=== PATIENT | female | born 1965 | race Caucasian/White ===

== ENCOUNTER → 2017-05-23 | Day surgery (SDC) | payer BC ==
[~2017-05-23] MED LIST: Bacitracin Zinc Ointment 30 gm TUBE ONE; Bupivacaine 0.25% HCL 30 ML VIAL ONE; CEFAZOLIN/Water 2 GM/20 ML SYRINGE ONE; Fentanyl 100 MCG/2 ML VIAL ONE; Ketorolac Tromethamine 30 MG/ML VIAL ONE; Lidocaine 1% w/Epinephrine 1:200K 30 ML VIAL ONE; Lidocaine 2% PF 10 ML AMP (For Epidural Use) ONE; Midazolam HCl 2 mg/2 ml Vial ONE; Ondansetron HCl/PF 4 MG/2 ML Vial ONE; Propofol 200 MG/20 ML VIAL ONE
--- NOTE | 2017-05-23 16:02 | HP ---
CHIEF COMPLAINT: Anterior scalp mass. HISTORY OF PRESENT ILLNESS: This patient is a 51-year-old white female. She is known to myself fro m a right breast lumpectomy for DCIS. This was performed in 10/2016. She was recognized to have a visible and palpable mass at the anterior aspect of her scalp in the midline, approximately at the hairline. She presented to my office today for excision of this as I believe this was a soft tissue mass of the scalp. The procedure was performed uneventfully and without complication; however, it was recognized that this was a mass associated with the bone of the skull rather than a soft tissue mass of the scalp. Although I was able to partially elevate this off the underlying cranium, I coul d not safely complete the procedure in my office with inadequate instrumentation. I discussed options with the patient including closing without removing the lesion or coming to the operating room for completion of the excision. She opted to complete the excision here in the oper ating room. PAST MEDICAL HISTORY: 1. History of right breast ductal carcinoma in situ. 2. Hypertension. 3. Seasonal allergies. PAST SURGICAL HISTORY: 1. Tonsillectomy. 2. . 3. Thyroid resection. 4. Right breast lumpectomy. CURRENT MEDICATIONS: Benazepril and atenolol. ALLERGIES: No known drug allergies. PERSONAL AND SOCIAL HISTORY: She is . Her is present at bedside currently. She has children. She denies tobacco or significant alcohol use. REVIEW OF SYSTEMS: Otherwise, unremarkable. FAMILY HISTORY: Noncontributory. PHYSICAL EXAMINATION: VITAL SIGNS: She is afebrile, pulse is 83, blood pressure 111/68. GENERAL: She is a well-developed, well-nourished, pleasant white female resting in no acute distres s. She is alert and oriented x3. HEENT: Unremarkable. She has a closed incision overlying the lesion at her hairline. The incision s about 1.5 cm transversely at the hairline. LUNGS: Clear to auscultation. CARDIAC: Regular rate and rhythm. ABDOMEN: Benign. EXTREMITIES: Unremarkable. ASSESSMENT: Patient with a bony lesion of the cranium underlying the anterior scalp at the hairline . This has been partially elevated. PLAN: Completion of resection in the operating room. I discussed the operation in detail with the patient as well as potential risks. She understands and agrees to proceed with surgery.
--- NOTE | 2017-05-24 19:48 | OP ---
DATE OF PROCEDURE: 05/23/2017 PREOPERATIVE DIAGNOSIS: Bony mass of the frontal bone of the cranium. POSTOPERATIVE DIAGNOSIS: Bony mass of the frontal bone of the cranium. OPERATION PERFORMED: Excision of 1.5 cm bony mass of anterior aspect of the frontal bone. SURGEON: Jose Juan Gamez M.D. ANESTHESIA: General with laryngeal mask airway. INDICATIONS: The patient is a 51-year-old white female. She had presented earlier in the day for e xcision of a presumed soft tissue mass near the hairline in the center of her upper forehead. It wa s recognized at the time of attempted excision of this was in fact a mass protruding from the fronta l bone of the cranium. She already had an incision in this area, I recommended proceeding to the op erating room for removal of this presumed benign bony growth. OPERATIVE PROCEDURE IN DETAIL: Informed consent was obtained. The patient was taken to the operati ng room where general anesthesia was obtained with the patient in supine position. The area was pre pped with Betadine and draped in sterile fashion. Local anesthetic was infiltrated using 0.25% Jacob mari with epinephrine. The prior incision was reopened. No additional incision was required. Diss ection was carried down onto the easily visible, smooth edged bony mass. I would be initiated disse ction of this off the underlying cranium. This was thereafter continued using a combination of fine tip bone rina as well as a fine periosteal elevator with the mallet. The largest portion of this came off immediately, but there was still some underlying irregularity. I contoured this additiona lly with the small chisel and mallet. When completed, all of the bony mass had been removed. There was nothing that appeared malignant. There was minimal oozing from the bone. The wound was thorou ghly irrigated and all irrigant was aspirated. The wound was closed in layers with 3-0 Vicryl and 4 -0 Prolene. Antibiotic ointment was placed externally. I then placed a Telfa gauze along with 4 x 4s and a compression dressing. There were no complications. Patient tolerated the procedure well a nd was taken to recovery in stable condition.
== END ==
LOC: SDC 15:08
PROVIDERS: ATTEND Specialist
PROC: 0JB00ZZ Excision of Scalp Subcutaneous Tissue and Fascia, Open Approach (ICD-10-PCS; principal; 2017-05-23)
DX: R22.0 Localized swelling, mass and lump, head (principal); I10 Essential (primary) hypertension; J30.2 Other seasonal allergic rhinitis; E89.0 Postprocedural hypothyroidism; Z79.899 Other long term (current) drug therapy; Z90.89 Acquired absence of other organs; Z98.891 History of uterine scar from previous surgery; Z98.890 Other specified postprocedural states; Z85.3 Personal history of malignant neoplasm of breast
CPT/HCPCS: 88305; 88311; J0131; J1885; J2001; J2250; J2405; J2704; J3010; S0020

== ENCOUNTER 2017-10-24 10:16 | Outpatient (CLI) | payer OTHER | END 2017-10-24 10:17 | disposition home or self-care (01) | LOC: BICMAMMO 10:16 | PROVIDERS: ATTEND Specialist | DX: D05.11 Intraductal carcinoma in situ of right breast (principal) | CPT/HCPCS: 77066; G0279 ==

== ENCOUNTER 2017-12-26 09:40 | Outpatient (CLI) | payer OTHER | END 2017-12-26 09:41 | disposition home or self-care (01) | LOC: BICCT 09:40 | PROVIDERS: ATTEND Otolaryngology Plastic Surgery within the Head & Neck | DX: H90.A21 Sensorineural hearing loss, unilateral, right ear, with restricted hearing on the contralateral side (principal); H90.A32 Mixed conductive and sensorineural hearing loss, unilateral, left ear with restricted hearing on the contralateral side; H93.13 Tinnitus, bilateral | CPT/HCPCS: 70480 ==

== ENCOUNTER 2018-01-16 10:42 | Outpatient (CLI) | payer OTHER ==
--- NOTE | 2018-01-16 15:24 | NM ---
WHOLE BODY BONE SCAN: DATE: 01/16/18. HISTORY: Osteitis deformans of unspecified bone. Abnormal attenuation of bilateral temporal bones (history of tinnitus and bilateral conductive hearing loss). RADIOPHARMACEUTICAL: 31 mCi Technetium 99m labeled MDP, IV. VIEWS OBTAINED: Anterior posterior whole body. FINDINGS: There is very mild uptake of radiotracer within the shoulders bilaterally, likely in a degenerative p attern. There is otherwise normal uptake of the radiotracer seen throughout the axial and appendicul ar skeleton. There is, however, increased uptake overlying the region of the nasal bone which may be related to sinus disease involving the ethmoidal air cells. Minimal activity is seen in the region of the kidneys and urinary bladder. IMPRESSION: 1. No scintigraphic findings to suggest osseous metastatic disease. 2. No evidence of findings related to Paget's disease (osteitis deformans). There is no abnormal up take seen overlying the region of the temporal bones. POS: [facility]
== END 2018-01-16 10:43 | disposition home or self-care (01) ==
LOC: NM 10:42
PROVIDERS: ATTEND Internal Medicine Endocrinology, Diabetes & Metabolism
DX: M88.9 Osteitis deformans of unspecified bone (principal)
CPT/HCPCS: 78306; A9503

== ENCOUNTER 2018-07-20 15:10 | Outpatient (CLI) | payer OTHER ==
--- NOTE | 2018-07-20 15:54 | ULT ---
ULTRASOUND SOFT TISSUES: HISTORY: Bilateral supraclavicular fullness, right greater than left. The patient has a history of DCIS. COMPARISON: None. TECHNIQUE: Targeted sonographic imaging of the region of fullness is performed. Static images are reviewed. FINDINGS: In the right supraclavicular region, there is an enlarged lymph node measuring approximately 1 cm x 1 .2 cm x 0.8 cm. In the region of concern in the left supraclavicular region, there is a nonenlarged left supraclavicular lymph node measuring 0.6 x 0.7 x 0.5 cm. There appears to be a 2nd more slightl y enlarged lymph node with a preserved fatty hilum measuring 1.5 x 0.9 cm. These lymph nodes are adj acent to the internal jugular vein. IMPRESSION: Bilateral supraclavicular lymphadenopathy. Given patient's history, postcontrast soft tissue neck an d chest CT is recommended. POS: [facility]
== END 2018-07-20 15:11 | disposition home or self-care (01) ==
LOC: SCSULT 15:10
PROVIDERS: ATTEND Internal Medicine Endocrinology, Diabetes & Metabolism
DX: E65 Localized adiposity (principal); R59.0 Localized enlarged lymph nodes
CPT/HCPCS: 76999

== ENCOUNTER 2018-07-24 14:35 | Outpatient (CLI) | payer OTHER ==
--- NOTE | 2018-07-24 17:11 | CT ---
CT CHEST WITH IV CONTRAST: Date: 07/24/18 HISTORY: Concern for supraclavicular lymphadenopathy. FINDINGS: No lymphadenopathy is seen in the supraclavicular regions, axilla, mediastinum, or hilar regions. No focal areas of consolidation, pneumothoraces, pulmonary nodules/masses, pleural or pericardial effusi ons are identified. There are mild degenerative changes in the spine. IMPRESSION: 1. No evidence of supraclavicular or intrathoracic lymphadenopathy. 2. CT scan of the chest should be performed as recommended on the ultrasound report of 07/20/18. POS: [facility]
== END 2018-07-24 14:36 | disposition home or self-care (01) ==
LOC: BICCT 14:35
PROVIDERS: ATTEND Internal Medicine Endocrinology, Diabetes & Metabolism
DX: R22.1 Localized swelling, mass and lump, neck (principal); E89.0 Postprocedural hypothyroidism
CPT/HCPCS: 71260

== ENCOUNTER 2018-08-07 13:42 | Outpatient (CLI) | payer OTHER ==
--- NOTE | 2018-08-07 16:30 | CT ---
CT NECK SOFT TISSUE WITH CONTRAST: CLINICAL HISTORY: Bilateral supraclavicular fullness, right greater than left, with neck edema/swelling and lymphadenop athy. COMPARISON: Reference made to ultrasound from 07/20/2018. FINDINGS: Several scattered borderline-sized lymph nodes throughout each cervical chain, as well as within the supraclavicular aspect of the upper chest, bilaterally, are present, measuring up to approximately 1 cm in size. Findings are nonspecific. The thyroid gland is not visualized. The submandibular glands and the parotid glands are unremarkabl e. No intrinsic mass effect of the aerodigestive tract. The imaged upper lung zones reveal no evide nce of mass. The osseous structures are intact. IMPRESSION: Nonspecific borderline-sized bilateral lymph nodes involving the cervical chains and the supraclavicu lar fossae. Findings could be reactive. The possibility of a neoplastic or a lymphoproliferative pr ocess is not excluded. If there remains clinical concern, findings could be further assessed with PE T CT, to evaluate for increased metabolic activity, as indicated. POS: [facility]
== END 2018-08-07 13:43 | disposition home or self-care (01) ==
LOC: BICCT 13:42
PROVIDERS: ATTEND Otolaryngology Plastic Surgery within the Head & Neck
DX: R22.1 Localized swelling, mass and lump, neck (principal); R59.0 Localized enlarged lymph nodes
CPT/HCPCS: 70491

== ENCOUNTER 2018-10-28 09:54 | Outpatient (CLI) | payer OTHER ==
--- NOTE | 2018-11-02 13:23 | MMO ---
Bilateral MAMMO Bilat Diag DDI+REGINA. CLINICAL HISTORY: Patient is 52 years old and is seen for diagnostic exam. The patient has no family history of breast cancer. The patient has a history of Stereotactic Core Biopsy procedure revealed ductal carcinoma in situ. in the right breast in August,. The patient has a history of right Excisional Biopsy in 2017 - dcis and right Lumpectomy in 2017 - dcis - x2. VIEWS: The views performed were: bilateral craniocaudal with tomosynthesis; bilateral mediolateral oblique with tomosynthesis; and bilateral mediolateral. FILMS COMPARED: The present examination has been compared to prior imaging studies performed at [facility] on 01/31/2006, 02/05/2006, 01/21/2008, 06/12/2010, 06/13/2011, 08/30/2013, 08/31/2014, 08/22/2016, 08/26/2016 and 10/24/2017. MAMMOGRAM FINDINGS: The breasts are heterogeneously dense, which could obscure a lesion on mammography. Finding 1: There is a stable area of architectural distortion with associated post-surgical scar seen in the right breast. Finding 2: There are benign appearing calcifications seen in both breasts. There are no suspicious masses, calcifications or areas of architectural distortion. IMPRESSION: THERE IS NO MAMMOGRAPHIC EVIDENCE OF MALIGNANCY. A ROUTINE FOLLOW-UP MAMMOGRAM IN 1 YEAR IS RECOMMENDED. THE RESULTS OF THIS EXAM WERE SENT TO THE PATIENT. ACR BI-RADS Category 2 - Benign finding MAMMOGRAPHY NOTE: 1. A negative mammogram report should not delay a biopsy if a dominant of clinically suspicious mass is present. 2. Approximately 10% to 15% of breast cancers are not detected by mammography. 3. Adenosis and dense breasts may obscure an underlying neoplasm.
== END 2018-10-28 09:55 | disposition home or self-care (01) ==
LOC: BICMAMMO 09:54
PROVIDERS: ATTEND Specialist
DX: Z08 Encounter for follow-up examination after completed treatment for malignant neoplasm (principal); Z86.000 Personal history of in-situ neoplasm of breast
CPT/HCPCS: 77066; G0279

== ENCOUNTER 2019-11-01 08:26 | Outpatient (CLI) | payer OTHER ==
--- NOTE | 2019-11-01 09:22 | MMO ---
Bilateral MAMMO Bilat Diag DDI+REGINA. CLINICAL HISTORY: Patient is 53 years old and is seen for screening. The patient has no family history of breast cancer. The patient has a history of Stereotactic core biopsy procedure revealed ductal carcinoma in situ. in the right breast in August,. The patient has a history of right Excisional Biopsy in 2017 - dcis and right Lumpectomy in 2017 - dcis - x2. VIEWS: The views performed were: bilateral craniocaudal with tomosynthesis and bilateral mediolateral oblique with tomosynthesis. FILMS COMPARED: The present examination has been compared to prior imaging studies performed at [facility] on 08/26/2016, 10/24/2017 and 10/28/2018. This study has been interpreted with the assistance of computer-aided detection. MAMMOGRAM FINDINGS: The breasts are heterogeneously dense, which could obscure a lesion on mammography. There are amorphous or indistinct calcifications with segmental distribution seen in the posterior upper-outer region of the left breast. In the right breast, there are no suspicious masses, calcifications or areas of architectural distortion. IMPRESSION: CALCIFICATIONS IN THE LEFT BREAST ARE SUSPICIOUS. BIOPSY IS RECOMMENDED. DR. MILNER NOTIFIED AT 9:18 AM. THE RESULTS OF THIS EXAM WERE SENT TO THE PATIENT. ACR BI-RADS Category 4 - Suspicious abnormality - biopsy should be considered MAMMOGRAPHY NOTE: 1. A negative mammogram report should not delay a biopsy if a dominant of clinically suspicious mass is present. 2. Approximately 10% to 15% of breast cancers are not detected by mammography. 3. Adenosis and dense breasts may obscure an underlying neoplasm. Reported by: Alec HARRIS Electonically Signed: [id number]
== END 2019-11-01 08:27 | disposition home or self-care (01) ==
LOC: BICMAMMO 08:26
PROVIDERS: ATTEND Specialist
DX: Z08 Encounter for follow-up examination after completed treatment for malignant neoplasm (principal); R92.1 Mammographic calcification found on diagnostic imaging of breast; Z86.000 Personal history of in-situ neoplasm of breast
CPT/HCPCS: 77063; 77066; 77067; G0279

== ENCOUNTER → 2019-11-05 | Day surgery (SDC) | payer OTHER ==
--- NOTE | 2019-11-05 09:37 | MMO ---
Stereotactic guided biopsy left breast microcalcifications Surgical specimen mammography Diagnostic mammogram left breast post biopsy HISTORY: Abnormal mammogram. Microcalcifications. Prior breast cancer. FINDINGS: After explaining the procedure and answering all questions, the microcalcification cluster deep within the superior lateral aspect the left breast was visualized. Sterile technique, buffered local anesthesia, stereotactic guidance, and a lateral approach were used to carefully advance a 10-g auge vacuum-assisted needle into the cluster of microcalcifications. A total of 12 10-gauge specimens were obtained without difficulty. Surgical specimen mammography shows microcalcifications in many of the tissue samples. Localization c lip was placed in the biopsy bed under stereotactic guidance. Needle was removed and hemostasis obtained using direct pressure. Patient tolerated the procedure well and was eventually dismissed in good condition. Postprocedure diagnostic mammogram shows heterogeneously dense fibroglandular tissue and benign-appea ring calcifications. Gas pockets and localization clip is now present in the biopsy bed deep within the superior lateral aspect of the left breast. Most of the microcalcifications from the suspicious c luster have been removed. IMPRESSION : Technically successful stereotactic guided biopsy left breast microcalcifications. Pathology is pendi ng.
== END ==
LOC: MAMMO 07:12
PROVIDERS: ATTEND Specialist
PROC: 0H9U3ZX Drainage of Left Breast, Percutaneous Approach, Diagnostic (ICD-10-PCS; principal; 2019-11-05)
DX: D05.12 Intraductal carcinoma in situ of left breast (principal)
CPT/HCPCS: 19081; 76098; 88305; 88341; 88342

== ENCOUNTER 2020-01-04 07:04 | Outpatient (CLI) | payer OTHER ==
[2020-01-04 17:07] LABS: Anion Gap 11 mmol/L (10-20); BUN (Urea Nitrogen) 13 mg/dL (9.8-20.1); Calc. Creatinine Clearance 0 mL/min (70-130); Calcium 8.6 mg/dL (7.8-10.44); Carbon Dioxide 26 mmol/L (22-29); Chloride 107 mmol/L (98-107); Estimated GFR-MDRD 84; Glucose 121 mg/dL (70-105); Potassium 3.3 mmol/L (3.5-5.1); Sodium 141 mmol/L (136-145)
[2020-01-04 17:25] LABS: Band 4 % (5-11); Eosinophils 1 % (0-10); Hemoglobin 13.8 g/dL (12.0-16.0); Lymphocytes 57 % (21-51); MDiff Complete? YES; Mean Corpuscular HGB CONC 33.6 g/dL (32.0-36.0); Mean Corpuscular Hemoglobin 28.6 pg (27.0-31.0); Mean Corpuscular Volume 85.2 fL (78.0-98.0); Mean Platelet Volume 8.1 fL (7.4-10.4); Monocytes 5 % (0-10); Neutrophil 26 % (42-75); Platelet Count 197 thou/uL (130-400); Platelet Morphology Comment Appears Adequate; RBC Distribution Width 11.7 % (11.5-14.5); RBC Morphology Normal; Reactive Lymphocytes 7 % (0-10); Red Blood Cell (RBC) Count 4.81 mill/uL (4.20-5.40); White Blood Cell (WBC) Count 12.3 thou/uL (4.8-10.8)
[2020-01-05 10:59] LABS: SARS-CoV-2 MS2 Positive; SARS-CoV-2 N Gene Negative; SARS-CoV-2 S Gene Negative; SARS-CoV-2 orf1ab Negative
== END 2020-01-04 07:05 | disposition home or self-care (01) ==
LOC: LABBT 07:04
PROVIDERS: ATTEND Specialist
DX: Z01.818 Encounter for other preprocedural examination (principal); Z11.59 Encounter for screening for other viral diseases; D05.12 Intraductal carcinoma in situ of left breast
CPT/HCPCS: 80048; 85025; 87635; 93005; 93010; U0003

== ENCOUNTER 2020-01-06 07:00 | Day surgery (SDC) | payer OTHER ==
[2020-01-04 16:04] VITALS: BMI 31.1
[2020-01-06] MEDS ORDERED: Ketorolac Tromethamine 30 MG/ML VIAL ONE (08:45)
[2020-01-06] MEDS ORDERED: Bupivacaine 0.25% HCL 30 ML VIAL ONE (09:03)
[2020-01-06] MEDS ORDERED: Lidocaine 1% w/Epinephrine 1:100K 20 ML VIAL ONE (09:03)
[2020-01-06] MEDS ORDERED: Fentanyl 100 MCG/2 ML VIAL ONE (09:08)
[2020-01-06] MEDS ORDERED: Midazolam HCl 2 mg/2 ml Vial ONE (09:08)
[2020-01-06] MEDS ORDERED: Ondansetron PF 4 MG/2 ML Vial ONE (13:38)
[2020-01-06] MEDS ORDERED: PROPOFOL 200 MG/20 ML VIAL ONE (13:38)
--- NOTE | 2020-01-06 15:27 | MMO ---
LEFT BREAST NEEDLE LOCALIZATION WITH MAMMOGRAPHIC GUIDANCE. HISTORY: Left breast cancer. FINDINGS: Successful left breast needle localization with mammographic guidance. A 5 cm Woodstock needle and wire adjacent to the biopsy clip. TECHNIQUE: Consent was obtained to perform a left breast needle localization with mammographic guidance. In the lateral projection, the clip was identified. The breast is prepped and draped in a sterile fashion. 1% Lidocaine, buffered with sodium bicarbonate, is used for local anesthesia. Under mammographic g uidance, a 5 cm Woodstock needle and wire were advanced into the left breast. The wire was deployed. Ap propriate images were obtained. The patient tolerated the procedure well. No immediate or postproce dure complication. IMPRESSION: Successful left breast needle localization. SPECIMEN RADIOGRAPH: Normal wire and biopsy clip are present on specimen radiograph. Findings conveyed to Dr. Gamez at the time of specimen radiograph evaluation. CODE CR POS: [facility]
--- NOTE | 2020-01-07 13:04 | OP ---
DATE OF PROCEDURE: 01/06/2020 PREOPERATIVE DIAGNOSIS: Left breast ductal carcinoma in situ. POSTOPERATIVE DIAGNOSIS: Left breast ductal carcinoma in situ. PROCEDURE PERFORMED: Left breast needle-localized lumpectomy. ANESTHESIA: General with laryngeal mask airway. INDICATIONS: The patient is a 54-year-old white female. She had previously undergone a right breast lumpectomy for ductal carcinoma in situ. Recent stereotactic biopsy of calcifications in the upper outer left breast revealed further ductal carcinoma in situ. Her BRCA studies have been obtained and are negative. She is opted to proceed with a left breast lumpectomy. DESCRIPTION OF OPERATION: Informed consent was obtained. The patient was taken to the operating room, where general anesthesia was obtained with the patient in supine position. She had undergone needle localization of the biopsy clip in the upper outer left breast before coming to the operating room. There were no substantial residual calcifications from her prior stereotactic biopsy. A 4-cm needle had been utilized entering in a lateral to medial fashion. The clip was approximately midshaft of the needle. Local anesthetic was infiltrated using 0.25% Marcaine with epinephrine. A transverse incision was created with the lateral extent of the incision at the needle entry site. Dissection was carried through skin and subcutaneous tissue. About a centimeter deep in the breast, I raised flaps superiorly, inferiorly, and medially. The tissue into which the needle entered was elevated and dissection was carried posterior to the needle. A wide core of tissue was obtained below the flaps that had been raised and dissection was carried beyond the tip of the needle. The specimen was removed, which was a generous lump of tissue around the needle. It was tagged for orientation with sutures and submitted for specimen mammography. This revealed evidence of the clip within the specimen. It was then submitted to pathology. Meticulous hemostasis was obtained within the wound using electrocautery. It was irrigated with saline. The wound was closed in layers with 3-0 and 4-0 Monocryl suture. Dermabond was placed externally. There were no complications. The patient tolerated the procedure well and was taken to recovery room in stable condition. Job ID: [id number]
== END 2020-01-06 12:52 | disposition home or self-care (01) ==
LOC: SDC 07:00
PROVIDERS: ATTEND Specialist
PROC: 0HBU0ZZ Excision of Left Breast, Open Approach (ICD-10-PCS; principal; 2020-01-06)
DX: D05.12 Intraductal carcinoma in situ of left breast (principal); N64.1 Fat necrosis of breast; Z79.810 Long term (current) use of selective estrogen receptor modulators (SERMs); Z79.899 Other long term (current) drug therapy
CPT/HCPCS: 19281; 76098; 88307; 88341; 88342; J0690; J1885; J2250; J2405; J2704; J3010; S0020

== ENCOUNTER 2020-03-27 10:57 | Observation (INO) | payer OTHER ==
[~2020-03-27 10:57] MED LIST changes: -Bacitracin Zinc Ointment 30 gm TUBE ONE; -Bupivacaine 0.25% HCL 30 ML VIAL ONE; -CEFAZOLIN/Water 2 GM/20 ML SYRINGE ONE; +Dexamethasone 20 MG/5 ML VIAL ONE; +EPHEDRINE 25 MG/5 ML SYRINGE ONE; -Fentanyl 100 MCG/2 ML VIAL ONE; +Glycopyrrolate 0.2 MG/ML 5 ML SYRINGE ONE; -Ketorolac Tromethamine 30 MG/ML VIAL ONE; +Lidocaine 1% PF 5 ML VIAL ONE; -Lidocaine 1% w/Epinephrine 1:200K 30 ML VIAL ONE; -Lidocaine 2% PF 10 ML AMP (For Epidural Use) ONE; -Midazolam HCl 2 mg/2 ml Vial ONE; -Ondansetron HCl/PF 4 MG/2 ML Vial ONE; +Ondansetron PF 4 MG/2 ML Vial ONE; +PHENYLEPHRINE-NS 100 MCG/ML 10 ML SYRINGE ONE; +PROPOFOL 200 MG/20 ML VIAL ONE; -Propofol 200 MG/20 ML VIAL ONE; +Rocuronium Bromide 10 MG/ML (10ML VIAL) ONE
[2020-03-27] MEDS ORDERED: Ketorolac Tromethamine 30 MG/ML VIAL ONE ×2 (11:36→16:18)
[2020-03-27] MEDS ORDERED: EPINEPHrine 1 MG/ML AMP ONE (11:39)
[2020-03-27] MEDS ORDERED: Gentamicin 80 MG/2 ML VIAL ONE (11:39)
[2020-03-27] MEDS ORDERED: Bupivacaine 0.25% HCL 30 ML VIAL ONE (11:39)
[2020-03-27] MEDS ORDERED: Heparin 5,000 UNITS/ML VIAL ONE (11:45)
[2020-03-27] MEDS ORDERED: Fentanyl 100 MCG/2 ML VIAL ONE ×3 (12:11→17:07)
[2020-03-27] MEDS ORDERED: Fentanyl 250 MCG/5 ML VIAL ONE (12:27)
[2020-03-27] MEDS ORDERED: Rocuronium Bromide 50 MG/5 ML VIAL ONE (14:16)
[2020-03-27] MEDS ORDERED: Promethazine HCl 25 MG/ML VIAL SLOW IVP PRN (16:17)
[2020-03-27] MEDS ORDERED: Meperidine HCl/PF 25 MG/ML VIAL SLOW IVP PRN (16:17)
[2020-03-27] MEDS ORDERED: HYDROmorphone 2 MG/ML VIAL SLOW IVP PRN (16:17)
[2020-03-27] MEDS ORDERED: PACU-Morphine 4MG/ML VIAL SLOW IVP PRN (16:17)
[2020-03-27] MEDS ORDERED: Ondansetron HCl/PF 4 MG/2 ML Vial IVP PRN (16:17)
[2020-03-27] MEDS ORDERED: Morphine Sulfate 2 MG/ML SYRINGE SLOW IVP PRN (16:17)
[2020-03-27] MEDS ORDERED: Ketorolac Tromethamine 30 MG/ML VIAL IVP PRN (16:17)
[2020-03-27] MEDS ORDERED: Promethazine HCl 25 MG/ML VIAL IM PRN ×2 (16:17→18:06)
[2020-03-27] MEDS ORDERED: Dextrose 5% in Water 1,000 ML IV PRN (18:06)
[2020-03-27] MEDS ORDERED: hydrALAZINE 20 MG/ML VIAL SLOW IVP PRN (18:06)
[2020-03-27] MEDS ORDERED: Ondansetron PF 4 MG/2 ML Vial IVP PRN (18:06)
[2020-03-27] MEDS ORDERED: Morphine 2 MG/ML VIAL SLOW IVP PRN (18:06)
[2020-03-27] MEDS ORDERED: Morphine 4 MG/ML VIAL SLOW IVP PRN (18:06)
[2020-03-27] MEDS ORDERED: Scopolamine 1.5 mg/72 hour Patch TOP SCH (18:06)
[2020-03-27] MEDS ORDERED: Dextrose 50% Abboject 50 ML SYRINGE SLOW IVP PRN (18:06)
[2020-03-27] MEDS ORDERED: HYDROcodone/Acetaminophen 7.5/325 mg Tablet PO PRN ×2 (18:06)
[2020-03-27] MEDS ORDERED: D5 1/2 NS w/20 mEq KCL 1,000 ML IV SCH (18:06)
[2020-03-27 18:31] VITALS: BMI 31.5
[2020-03-27] MEDS ORDERED: Fluticasone Propionate Nasal Spray 16 gm Bottle NASAL PRN (18:45)
[2020-03-27] MEDS ORDERED: Loratadine 10 MG TAB PO PRN (18:45)
[2020-03-27] MEDS: Famotidine 20 MG TAB PO SCH (21:12)
[2020-03-27] MEDS: Gabapentin 300 MG CAP PO SCH (21:12)
[2020-03-28 05:01] LABS: #Basophils 0.1 thou/uL (0.0-0.2); #Lymphocytes 3.1 thou/uL (1.20-3.40); #Monocytes 0.7 thou/uL (0.11-0.59); #Neutrophils 11.1 thou/uL (1.40-6.50); %Basophils 0.4 % (0.0-1.0); %Eosinophils 0.1 % (0.0-10.0); %Lymphocytes 20.9 % (21.0-51.0); %Monocytes 4.3 % (0.0-10.0); %Neutrophils 74.3 % (42.0-75.0); Hemoglobin 11.7 g/dL (12.0-16.0); Mean Corpuscular HGB CONC 32.7 g/dL (32.0-36.0); Mean Corpuscular Volume 85.8 fL (78.0-98.0); Mean Platelet Volume 9.1 fL (7.4-10.4); Platelet Count 177 thou/uL (130-400); RBC Distribution Width 12.1 % (11.5-14.5); Red Blood Cell (RBC) Count 4.16 mill/uL (4.20-5.40); White Blood Cell (WBC) Count 14.9 thou/uL (4.8-10.8)
[2020-03-28] MEDS: Gabapentin 300 MG CAP PO SCH (05:04)
[2020-03-28 05:45] LABS: Anion Gap 11 mmol/L (10-20); BUN (Urea Nitrogen) 10 mg/dL (9.8-20.1); Calc. Creatinine Clearance 162 mL/min (70-130); Carbon Dioxide 22 mmol/L (22-29); Chloride 111 mmol/L (98-107); Estimated GFR-MDRD Greater than 90; Glucose 142 mg/dL (70-105); Potassium 4.5 mmol/L (3.5-5.1); Sodium 139 mmol/L (136-145)
--- NOTE | 2020-03-28 05:58 | OP ---
DATE OF PROCEDURE: 03/27/2020 PREOPERATIVE DIAGNOSIS: Bilateral ductal carcinoma in situ. POSTOPERATIVE DIAGNOSIS: Bilateral ductal carcinoma in situ. PROCEDURES: 1. Bilateral internal Jimmy flap (25 sq cm) (60297.50). 2. Bilateral nipple reconstruction (52012.50). SUPERVISOR [employer] SHEETS: Jose Juan Gamez MD DESCRIPTION OF PROCEDURE: Following induction of adequate anesthesia, the patient was prepped and draped in usual sterile fashion in supine position. Attention was first turned to the left side. The nipple was circumcised around a 42 mm nipple sizer. A full-thickness skin incision was done for the lateral portion of the modified Briscoe pattern. Dr. Gamez used this access point to perform a mastectomy. After conclusion of the mastectomy, I attempted to close the Briscoe pattern, leaving the nipple on a de-epithelialized pedicle. This would not rotate satisfactorily due to the foreshortened nature of the medial mastectomy pedicle. Therefore, a nipple graft approach was taken. The nipple was harvested as a full-thickness skin graft. The remainder of the Briscoe pattern was then de-epithelialized with the internal Jimmy flap. The mastectomy field was copiously irrigated and inspected for meticulous hemostasis prior to closure of the inverted T with 3-0 PDS suture followed by a 3-0 Monocryl suture. A 42 mm de-epithelialized area was taken at the superior edge of the inverted T. The nipple was inset using a 3-0 Prolene suture. Drain was placed prior to closure. Attention was turned to the right side. The nipple was similarly harvested as a full-thickness skin graft. Modified Briscoe pattern area was de-epithelialized. An inferiorly based Jimmy flap was then created out of the inferior portion of the Briscoe pattern. The superior portion between the vertical limbs was incised in the middle of the de-epithelialized area. This allowed for tissue to be imbricated to preserve volume. Mastectomy was done through this access. Please see Dr. Gamez' note for further details. The inverted T closure was then closed over the inferiorly-based Jimmy flap. The closure was done as similarly described above. The nipple was also similarly inset. The patient tolerated the procedure well. Job ID: [id number]
[2020-03-28] MEDS ORDERED: Levothyroxine Sodium 125 MCG TAB PO SCH (06:00)
[2020-03-28] MEDS: Famotidine 20 MG TAB PO SCH (08:27)
[2020-03-28] MEDS ORDERED: Lisinopril 20 MG TAB PO SCH (09:00)
[2020-03-28] MEDS ORDERED: Prevnar 13-Val Conj/PF 0.5 ML SYRINGE IM ONE (09:00)
[2020-03-28 12:40] VITALS: BP 118/76; TEMP 98
--- NOTE | 2020-03-29 03:28 | DIS ---
DATE OF ADMISSION: 03/27/2020 DATE OF DISCHARGE: 03/28/2020 ADMISSION DIAGNOSIS: Bilateral ductal carcinoma in situ. DISCHARGE DIAGNOSIS: Bilateral ductal carcinoma in situ. OPERATIONS PERFORMED: Bilateral simple mastectomy with bilateral internal Jimmy flap per Dr. Hector Silver with bilateral nipple reconstruction. ADMISSION HISTORY: The patient is a 54-year-old white female, who was previously diagnosed with right breast DCIS. She was more recently diagnosed with left breast DCIS and an attempted lumpectomy revealed multiple positive margins. She therefore decided to proceed with bilateral mastectomy and treatment of this. HOSPITAL COURSE: She presented to the operating room and underwent uneventful surgery as outlined above on March 27. Her surgery was uncomplicated. She was stable throughout and was taken to recovery room and subsequently to the surgical floor. She has had an uneventful stay overnight. She notes minimal discomfort. She is tolerating her diet and is ambulated. Today, she is afebrile. Vital signs are normal. Both breasts examined, everything was found to be viable. She has appropriate drain output bilaterally. LABORATORY STUDIES: Unremarkable. Her hemoglobin is 11.7. Electrolytes are normal. ASSESSMENT AND PLAN: She is stable following surgery. She is discharged home at this time. She will follow up with Dr. Silver tomorrow and with myself in one week. She is instructed in drain care. I placed a circumferential Hitesh wrap dressing for the patient. She will leave this intact until she sees Dr. Silver tomorrow. Job ID: [id number]
--- NOTE | 2020-03-29 13:22 | OP ---
DATE OF PROCEDURE: 03/27/2020 PREOPERATIVE DIAGNOSIS: Bilateral DCIS of breasts. POSTOPERATIVE DIAGNOSIS: Bilateral DCIS of breasts. PROCEDURE PERFORMED: Bilateral mastectomy with breast reduction, Jimmy flap creation, and nipple reconstruction. BIOASSAYIST: Hector Silver MD ANESTHESIA: General endotracheal. INDICATIONS: The patient is a 54-year-old white female. She has a history of DCIS in the right breast. She recently was found to have further DCIS in the left breast. Lumpectomy had been unsuccessful at obtaining negative margins. There was felt to be significantly more disease within the left breast and after considering options, it was decided to proceed with a bilateral mastectomy. Due to the size of her breasts and her desire for breast reconstruction, the surgery was coordinated with Dr. Silver to accomplish a reduction in size with nipple reconstruction. The mastectomy on each side was performed by myself with Dr. Silver's assistance and the reconstruction was performed by Dr. Silver with my assistance. DESCRIPTION OF OPERATION: Informed consent was obtained. The patient was taken to the operating room, where general endotracheal anesthesia was obtained with the patient in supine position. Bilateral breasts were prepped with ChloraPrep and draped in sterile fashion. As there had been no invasive disease, it was decided against evaluation of the lymph node basin. Attention was turned first to the left breast. There was significant concern regarding the reconstruction on the left side secondary to the placement of the incision from her recent lumpectomy in the upper outer quadrant of the breast. In order to minimize chance of any flap necrosis, Dr. Silver fashioned an incision that extended from just above the nipple inferiorly without any initial substantial incision on the medial aspect of the nipple. He de-epithelialized a segment of the inferior aspect of the breast after harvesting the nipple, which he later determined to use as a free graft. Utilizing an incision that had been created, I carefully elevated the adipose dermal flap off the underlying breast tissue laterally, superiorly, and medially. All efforts were utilized to maximize the flap viability without compromising any removal of underlying breast tissue. At the area of the scarring from her prior recent surgery, efforts were made to dissect around the underlying lumpectomy cavity in order to minimize issues with retained disease. Meticulous hemostasis was obtained. The breast was swept off the chest wall in a medial to lateral fashion. All dissection was performed using the plasma blade. The breast was tagged for orientation with suture and submitted to pathology. At that point, Dr. Silver began the reconstruction on the left. I turned my attention to the right breast. On the right side, because of lack of concern regarding the potentially tenuous vascular area of the flap, a more standard Briscoe pattern incision was created. The nipple was harvested and de-epithelialized on the right as it had on the left. A meticulous dissection was carried out on the right as had been on the left to again ensure an appropriate adipose dermal flap while removing all breast tissue. There was again abundant scarring from her prior right lumpectomy that was encountered and traversed. Meticulous hemostasis was again obtained on the right side. The wound was irrigated and all irrigant was aspirated. The wound on the right side was closed in a standard Briscoe pattern fashion using 3-0 PDS to approximate the deep layers and 3-0 Monocryl to approximate the skin edges. Nipple reconstruction was again performed by Dr. Silver. Bilateral 10-[place] CHULA drains had been placed within the wounds and brought out laterally and inferiorly where they were secured with 3-0 nylon suture. The patient tolerated the procedure well. There had been minimal blood loss. She was taken to the recovery room in stable condition. Job ID: [id number]
== END 2020-03-28 12:06 | disposition home or self-care (01) ==
LOC: SDC 10:57 → SURG B 15:58 → SDC 18:07 → SURG B 18:07
PROVIDERS: ADMIT Specialist; ATTEND Specialist
PROC: 0HBV0ZZ Excision of Bilateral Breast, Open Approach (ICD-10-PCS; principal; 2020-03-27)
PROC: 0HR Skin and Breast, Replacement (ICD-10-PCS; 2020-03-27)
PROC: 0HR Skin and Breast, Replacement (ICD-10-PCS; 2020-03-27)
DX: D05.12 Intraductal carcinoma in situ of left breast (principal); D05.11 Intraductal carcinoma in situ of right breast; N19 Unspecified kidney failure; M19.90 Unspecified osteoarthritis, unspecified site; Z17.0 Estrogen receptor positive status [ER+]; Z79.899 Other long term (current) drug therapy
CPT/HCPCS: 36415; 80048; 85025; 88309; 96360; 96361; G0378; J0171; J0690; J1100; J1580; J1644; J1885; J2405; J2704; J3010; J3370; J3480; J3490; S0020

== ENCOUNTER 2020-04-07 21:04 | Inpatient (IN) | payer OTHER ==
[2020-04-07] MEDS ORDERED: Cefepime 2 GM VIAL ONE (22:24)
[2020-04-07] MEDS ORDERED: Vancomycin 1 GM/200 ML BAG ONE (22:24)
[2020-04-08 00:15] LABS: Anion Gap 11 mmol/L (10-20); BUN (Urea Nitrogen) 10 mg/dL (9.8-20.1); Calc. Creatinine Clearance 0 mL/min (70-130); Calcium 8.5 mg/dL (7.8-10.44); Carbon Dioxide 25 mmol/L (22-29); Chloride 106 mmol/L (98-107); Estimated GFR-MDRD 84; Glucose 118 mg/dL (70-105); Sodium 139 mmol/L (136-145)
[2020-04-08 00:16] LABS: ALT (SGPT) 13 U/L (8-55); AST (SGOT) 13 U/L (5-34); Albumin 3.5 g/dL (3.5-5.0); Alkaline Phosphatase 72 U/L (40-110); Bilirubin, Total 0.6 mg/dL (0.2-1.2); Globulin 2.6 g/dL (2.4-3.5); Protein, Total 6.1 g/dL (6.0-8.3)
[2020-04-08 00:23] LABS: #Basophils 0.1 thou/uL (0.0-0.2); #Eosinphils 0.5 thou/uL (0.0-0.7); #Lymphocytes 2.8 thou/uL (1.20-3.40); #Monocytes 0.9 thou/uL (0.11-0.59); #Neutrophils 15.2 thou/uL (1.40-6.50); %Basophils 0.4 % (0.0-1.0); %Eosinophils 2.5 % (0.0-10.0); %Lymphocytes 14.2 % (21.0-51.0); %Monocytes 4.7 % (0.0-10.0); %Neutrophils 78.1 % (42.0-75.0); Hemoglobin 12.8 g/dL (12.0-16.0); Mean Corpuscular HGB CONC 33.6 g/dL (32.0-36.0); Mean Corpuscular Hemoglobin 28.4 pg (27.0-31.0); Mean Corpuscular Volume 84.5 fL (78.0-98.0); Mean Platelet Volume 8.1 fL (7.4-10.4); Platelet Count 213 thou/uL (130-400); Red Blood Cell (RBC) Count 4.49 mill/uL (4.20-5.40); White Blood Cell (WBC) Count 19.5 thou/uL (4.8-10.8)
[2020-04-08] MEDS ORDERED: Ondansetron PF 4 MG/2 ML Vial IVP PRN (02:35)
[2020-04-08] MEDS ORDERED: Ondansetron ODT 4 MG TAB SL PRN (02:35)
[2020-04-08 02:49] VITALS: BMI 30.2
[2020-04-08] MEDS: Sodium Chloride 0.9% 1,000 ML IV SCH ×2 (03:22→18:18)
[2020-04-08] MEDS: Acetaminophen 500 MG TAB PO PRN (07:50)
--- NOTE | 2020-04-08 07:57 | ULT ---
PRELIMINARY REPORT/[facility]/EMERGENCY AFTER HOURS PROCEDURE EXAM: US left Breast Limited. CLINICAL HISTORY: HX: BILATERAL MASTECTOMY 03/27. FEVER, PAIN, SWELLING OF THE LT BREAST TODAY. TECHNIQUE: Static sonographic images of the left breast with image documentation utilizing a linear transducer. COMPARISON: None provided. FINDINGS: A 5.9 x 2.6 x 6.6 cm fluid collection is noted extending from the nipple region of the LEFT breast at the 2:30 to 3 o'clock position IMPRESSION: Large unilocular fluid collection in the LEFT breast, likely related to the recent mastectomy and pos sibly an abscess ELECTRONICALLY SIGNED BY: Jamel Aponte MD Apr 08, 2020 12:42:28 AM CDT This report is intended for review by the ordering physician only, in accordance of law. If you recei ve this report in error, please call [facility] at [phone]. FINAL REPORT Exam: Left breast ultrasound HISTORY: Fever. Pain. Mastectomy on 03/27/2020. COMPARISON: None. FINDINGS: There is a large fluid collection in left breast measuring 5.9 x 2.6 x 6.6 cm. IMPRESSION: 1. This report is in agreement with initial report by [facility]. 2. Fluid collection may represent postoperative change secondary to recent mastectomy. Abscess cannot be excluded. Transcribed Date/Time: 04/08/2020 9:29 AM
[2020-04-08] MEDS ORDERED: Vancomycin 1 GM in Premix Bag 1 BAG IVPB SCH (09:00)
[2020-04-08] MEDS ORDERED: Cefepime 2 GM in Sodium Chloride 0.9% 100 ML IVPB SCH (11:00)
[2020-04-08 11:52] LABS: Bacteria/HPF 2+ HPF (None Seen); Bilirubin Negative (Negative); Blood, Urine 2+ (Negative); Clarity Clear (Clear); Glucose, Urine (Dipstick) Normal (Negative); Ketone, Urine 100 mg/dL (Negative); Leukocyte Negative Leu/uL (Negative); Nitrite Negative (Negative); Protein, Urine (Dipstick) 50 mg/dL (Neg-Trace); RBC/HPF 21-50 HPF (0-3); Specific Gravity, Urine 1.016 (1.002-1.036); Squamous Epithelial 0-3 HPF (0-3); Urobilinogen Normal mg/dL (Less than 2)
[2020-04-08] MEDS ORDERED: Ketorolac Tromethamine 30 MG/ML VIAL ONE (13:01)
[2020-04-08] MEDS ORDERED: PHENYLEPHRINE-NS 100 MCG/ML 10 ML SYRINGE ONE (13:01)
[2020-04-08] MEDS ORDERED: Ondansetron PF 4 MG/2 ML Vial ONE (13:01)
[2020-04-08] MEDS ORDERED: Lidocaine 1% PF 5 ML VIAL ONE (13:01)
[2020-04-08] MEDS ORDERED: PROPOFOL 200 MG/20 ML VIAL ONE (13:01)
--- NOTE | 2020-04-08 13:19 | HP ---
HISTORY OF PRESENT ILLNESS: Ms. Aquino is a 54-year-old white female, well known to myself. She is status post bilateral reduction mastectomy with Jimmy flap creation and nipple reconstruction on March 27. The surgery was performed by myself and Dr. Silver in treatment of left breast DCIS with positive margins following the lumpectomy and a history of right breast DCIS that was treated with surgery without radiation. Her final drain was removed in the office earlier this week. She developed a fever two days ago that worsened yesterday. She apparently had a fever up to 102 degrees and felt badly and presented to the emergency room. She was noted to have left breast swelling/cellulitis. White blood cell count was elevated at 19,000. Ultrasound was performed revealing a fluid collection within the breast. The patient was admitted and started on IV antibiotics using vancomycin and cefepime. She tells me that she feels much better. She notes that she felt better right after her fever resolved, which was earlier this morning. Unfortunately, at the time of her mastectomies, she had positive anterior margins on the left breast for areas of high-grade DCIS. PAST MEDICAL HISTORY: Significant for bilateral DCIS of the breast, history of thyroid disease, seasonal allergies. PAST SURGICAL HISTORY: Right breast lumpectomy in October 2016, left breast lumpectomy in January 2020, bilateral breast reduction mastectomy with Jimmy flap creation and nipple reconstruction. MEDICATIONS: Include; 1. Synthroid. 2. Tamoxifen. 3. Benazepril. 4. Flonase. ALLERGIES: NO KNOWN DRUG ALLERGIES. PERSONAL AND SOCIAL HISTORY: She is . She does not smoke. REVIEW OF SYSTEMS: Otherwise, unremarkable. FAMILY HISTORY: Noncontributory. PHYSICAL EXAMINATION: VITAL SIGNS: She weighs about 220 pounds. Her temperature here in the hospital has been as high as 100.8, but it is currently 97.8, pulse was 104 and is now 84. Blood pressure is within normal limits. GENERAL: Well-developed, well-nourished, pleasant white female, well known to myself. She is alert and oriented x3. HEAD, EYES, EARS, NOSE, AND THROAT: Unremarkable. NECK: Supple. LUNGS: Clear to auscultation. CARDIAC: Regular rate and rhythm. BREASTS: Her left breast is definitely swollen in comparison to the right breast. All incisions are nicely healed. The nipple grafts appear to be somewhat dark but viable. There is no obvious abscess or infectious focus that is visualized on the breast exam. ABDOMEN: Benign. ASSESSMENT: The patient with an apparent infection involving the left breast. She has a swelling of the breast with some degree of cellulitis and fluid collection seen on ultrasound along with a fever and a high white blood cell count. This fluid collection should be drained appropriately. While this could potentially be drained percutaneously, she does have a recent history of positive anterior margins, I have suggested that we address both problems at the same time. I will plan to reopen her mastectomy and obtain a more appropriate anterior margin. This could include up to excision of the incision from the prior lumpectomy in the outer breast. The area of infection will be thoroughly washed out with new drain placement. I have discussed all this in detail with the patient. I have also discussed this with Dr. Silver who presented to the operating room to assist with this. She understands and agrees to proceed with surgery at this time. Job ID: [id number]
[2020-04-08] MEDS ORDERED: Fentanyl 100 MCG/2 ML VIAL ONE ×2 (17:13→19:40)
[2020-04-08] MEDS ORDERED: HYDROmorphone 2 MG/ML VIAL ONE (17:13)
[2020-04-08 17:39] LABS: SARS-CoV-2 MS2 Positive; SARS-CoV-2 N Gene Negative; SARS-CoV-2 S Gene Negative; SARS-CoV-2 by NAA Not Detected (NotDetected); SARS-CoV-2 orf1ab Negative
[2020-04-08] MEDS: D5 1/2 NS w/40 mEq KCL 1,000 ML IV SCH (18:18)
[2020-04-08] MEDS ORDERED: Morphine Sulfate 2 MG/ML SYRINGE SLOW IVP PRN (19:21)
[2020-04-08] MEDS ORDERED: HYDROmorphone 2 MG/ML VIAL SLOW IVP PRN (19:21)
[2020-04-08] MEDS ORDERED: Promethazine HCl 25 MG/ML VIAL SLOW IVP PRN (19:21)
[2020-04-08] MEDS ORDERED: PACU-Morphine 4MG/ML VIAL SLOW IVP PRN (19:21)
[2020-04-08] MEDS ORDERED: Ondansetron HCl/PF 4 MG/2 ML Vial IVP PRN (19:21)
[2020-04-08] MEDS ORDERED: Promethazine HCl 25 MG/ML VIAL IM PRN (19:21)
[2020-04-08] MEDS: Ibuprofen 600 MG TAB PO PRN (22:47)
[2020-04-08] MEDS ORDERED: HYDROcodone/Acetaminophen 7.5/325 mg Tablet PO PRN ×2 (22:50)
[2020-04-08] MEDS: Vancomycin HCl 1.25 GM in Sodium Chloride 0.9% 250 ML 250 ML IVPB SCH (23:01)
[2020-04-09] MEDS: Cefepime 2 GM in Sodium Chloride 0.9% 100 ML IVPB SCH ×3 (01:28→17:17)
[2020-04-09] MEDS: D5 1/2 NS w/40 mEq KCL 1,000 ML IV SCH ×3 (04:00→15:47)
[2020-04-09 05:23] LABS: #Eosinphils 0.8 thou/uL (0.0-0.7); #Lymphocytes 2.5 thou/uL (1.20-3.40); #Monocytes 0.7 thou/uL (0.11-0.59); #Neutrophils 7.2 thou/uL (1.40-6.50); %Basophils 0.2 % (0.0-1.0); %Eosinophils 7.4 % (0.0-10.0); %Monocytes 6.3 % (0.0-10.0); %Neutrophils 64.2 % (42.0-75.0); Hemoglobin 10.3 g/dL (12.0-16.0); Mean Corpuscular HGB CONC 33.6 g/dL (32.0-36.0); Mean Corpuscular Hemoglobin 28.9 pg (27.0-31.0); Mean Platelet Volume 7.8 fL (7.4-10.4); Platelet Count 172 thou/uL (130-400); Red Blood Cell (RBC) Count 3.56 mill/uL (4.20-5.40); White Blood Cell (WBC) Count 11.2 thou/uL (4.8-10.8)
[2020-04-09 05:44] LABS: Anion Gap 9 mmol/L (10-20); BUN (Urea Nitrogen) 9 mg/dL (9.8-20.1); Calc. Creatinine Clearance 155 mL/min (70-130); Calcium 7.2 mg/dL (7.8-10.44); Carbon Dioxide 25 mmol/L (22-29); Chloride 108 mmol/L (98-107); Estimated GFR-MDRD Greater than 90; Glucose 103 mg/dL (70-105); Potassium 3.3 mmol/L (3.5-5.1); Sodium 139 mmol/L (136-145)
[2020-04-09] MEDS ORDERED: Acetaminophen 500 MG TAB PO PRN (10:59)
[2020-04-09] MEDS ORDERED: Levothyroxine Sodium 125 MCG TAB PO SCH (11:00)
[2020-04-09] MEDS ORDERED: Loratadine 10 MG TAB PO PRN (11:30)
[2020-04-09] MEDS ORDERED: Fluticasone Propionate Nasal Spray 16 gm Bottle NASAL PRN (11:30)
[2020-04-09] MEDS: Vancomycin HCl 1.25 GM in Sodium Chloride 0.9% 250 ML 250 ML IVPB SCH ×2 (12:06→22:05)
[2020-04-09] MEDS: Acetaminophen 500 MG TAB PO PRN ×2 (12:17→22:05)
[2020-04-09] MEDS: Ibuprofen 600 MG TAB PO PRN ×2 (14:41→22:05)
--- NOTE | 2020-04-09 20:35 | PDOC.GSPN ---
Surgery Progress Note: Subj - Subjective Narrative: Patient is sore but pain is tolerable on medications. Afebrile with normal vital signs. White count is down although still slightly above normal. Gram-positive cocci in clusters on Gram stain, wound culture still pending. Blood cultures are negative to date. Mastectomy site looks good. She has a little swelling but her erythema has improved and there is no fluctuance. CHULA drainage is serosanguineous. Assessment/plan: Left breast cancer status post bilateral mastectomies with postoperative infected seroma status post washout and reexcision of anterior margin. Doing well overall. Continue antibiotics. Awaiting culture results to target therapy. Surgery Progress Note: Obj - Vital signs Vital signs: Vital Signs - Most Recent Temp Pulse Resp BP Pulse Ox 97.7 F 85 16 110/72 98 04/09/20 16:05 04/09/20 16:05 04/09/20 16:05 04/09/20 16:05 04/09/20 16:05 Surgery Progress Note: Results - Labs Result Diagrams: 04/09/20 05:01 04/09/20 05:01
[2020-04-09] MEDS ORDERED: Calcium Carbonate 500 MG ChewTAB PO PRN (22:13)
[2020-04-09] MEDS ORDERED: Calcium Carbonate 500 MG ChewTAB PO SCH (22:15)
[2020-04-10] MEDS: D5 1/2 NS w/40 mEq KCL 1,000 ML IV SCH ×3 (03:16→13:24)
[2020-04-10] MEDS: Cefepime 2 GM in Sodium Chloride 0.9% 100 ML IVPB SCH (03:16)
[2020-04-10] MEDS: Levothyroxine Sodium 125 MCG TAB PO SCH ×2 (06:10→06:13)
[2020-04-10 07:55] VITALS: TEMP 97.9
[2020-04-10] MEDS ORDERED: Zinc Sulfate 220 MG CAP PO SCH (09:00)
[2020-04-10] MEDS ORDERED: BENAZEPRIL 40 MG PO SCH (09:00)
[2020-04-10] MEDS ORDERED: Ascorbic Acid 500 mg Chewable Tablet PO SCH (09:00)
[2020-04-10] MEDS ORDERED: Lisinopril 20 MG TAB PO SCH (09:00)
[2020-04-10] MEDS ORDERED: Multivitamin W/ Minerals 1 TAB PO SCH (09:00)
--- NOTE | 2020-04-10 10:45 | OP ---
DATE OF PROCEDURE: 04/08/2020 PREOPERATIVE DIAGNOSIS: Left mastectomy infection, positive anterior margin from prior left breast mastectomy. POSTOPERATIVE DIAGNOSIS: Left mastectomy infection, positive anterior margin from prior left breast mastectomy. PROCEDURE PERFORMED: Reopening of prior mastectomy incision with extensive irrigation and drainage of a mastectomy abscess, re-excision of anterior margin of prior mastectomy. ANESTHESIA: General endotracheal. PATIENT REGISTRAR: Dr. Hector Silver. INDICATIONS: The patient is a 54-year-old white female. She is postoperative day #12 from bilateral mastectomies with modified Briscoe-pattern reduction and nipple reconstruction. She has returned to the hospital several days after her last drain was removed with obvious left breast cellulitis and swelling. She is taken to the operating room at this time for surgical drainage of her mastectomy infection, placement of drains. Additionally, since she had positive anterior margins for DCIS from prior surgery, I recommend the excision of the anterior margin in the area of the prior lumpectomy. DESCRIPTION OF OPERATION: Informed consent was obtained. The patient was taken to the operating room, where general anesthesia was obtained with the patient in supine position. Left breast was prepped with ChloraPrep and draped in sterile fashion. Local anesthetic was infiltrated using a mixture of 1% lidocaine and 0.25% Marcaine with epinephrine. The vertical incision on the inferior aspect of her mastectomy was incised and entrance was gained into the subcutaneous space, which was the location of the purulent fluid. This fluid was all relatively thin. There was no foul smell. Cultures were obtained. The vertical incision was opened further in a cephalad direction. Attention was turned to the area of the prior lumpectomy, which was to the left lateral aspect of the new nipple-areolar complex. In order to gain optimal access to this area for re-excision, Dr. Silver transected the nipple in the midline in an ascending fashion. With this optimized exposure, I was easily able to identify and re-excise the anterior aspect of the mastectomy flap underlying the prior lumpectomy incision. I obtained a wide anterior margin in this area extending well beyond the area of the lumpectomy incision in all directions. The specimen was removed intact and sutures were placed for tissue orientation. It was submitted to Pathology. Upon further inspection, there was noted to be at least one nodule somewhat lateral to this area. This may be nothing more than scar tissue, but I decided to re-excise this to normal soft tissue as well. It was removed and oriented with sutures and passed off the field as well. Meticulous hemostasis was obtained with electrocautery. The wound was copiously irrigated with a couple of liters of saline. A new #19 round fluted drain was placed within the wound and brought out laterally and inferiorly, was secured with a 3-0 nylon suture. The vertical mastectomy incision was closed in layers using a 3-0 PDS and 4-0 Monocryl sutures. Dermabond was placed externally. A sterile occlusive dressing was applied over the drain exit site. Circumferential compression bandage was applied. There were no complications. Blood loss was negligible. The patient tolerated the procedure well and was taken to recovery room in stable condition. Job ID: [id number]
[2020-04-10] MEDS: Vancomycin HCl 1.25 GM in Sodium Chloride 0.9% 250 ML 250 ML IVPB SCH (11:20)
[2020-04-10] MEDS: Acetaminophen 500 MG TAB PO PRN (11:35)
[2020-04-10 11:44] VITALS: BP 130/79
--- NOTE | 2020-04-11 19:38 | PQF ---
CLINICAL DOCUMENTATION CLARIFICATION FORM: Dear Dr. Gamez Date: 04/11/2020 Please exercise your independent, professional judgment in responding to the clarification form. Clinical indicators are provided on the bottom of this form for your review. Please check appropriate box(es) to clarify if the following diagnosis has been ruled in our ruled out: SEPSIS [x ] Ruled in diagnosis [ ] Ruled out diagnosis [ ] Cannot rule out diagnosis [ ] Other diagnosis [ ] Unable to determine In addition, please specify: Present on Admission (POA): [ ] Yes [ ] No [ ] Unable to determine For continuity of documentation, please document condition throughout progress notes and discharge summary. Thank You. CLINICAL INDICATORS - SIGNS / SYMPTOMS / LABS / RESULTS AND LOCATION IN EMR *LAB ([facility]) WBC Neutrophil % 04/08 (scanned in) 19.5 78.1 04/08 19.2 78.1 04/09 11.2 *ED 04/08: * Vital Signs: Pulse 92-105 * Reports a fever at home of 102.8. * Diagnosis Final: Primary: Sepsis Additional: Left breast cellulitis, post- operative abscess *PN 04/09 ([facility]): * White count is down although still slightly above normal. * Gram-positive cocci in clusters on Gram stain, wound culture still pending. Blood cultures are negative to date. *Microbiology 04/08 ([facility]): Left Breast Bacterial Culture- Final Staphylococcus aureus RISK FACTORS / RESULTS AND LOCATION IN EMR *H&P 04/08 ([facility]): * Status post bilateral reduction mastectomy with Jimmy flap creation and nipple reconstruction on March 27. * Swelling of the breast with some degree of cellulitis and fluid collection. * Operative Notes 04/10 ([facility]): Left mastectomy infection TREATMENTS / RESULTS AND LOCATION IN EMR *ED 04/08: NS 1L IV x2, Vancomycin IV, Cefepime IV *Microbiology ([facility]): Blood Culture x2 on 04/07, Bacterial Culture (Breast Left) *LAB ([facility]): CBC 04/08-04/09 *Operative Report 04/10 ([facility]): * Date of Procedure 04/08/2020 * Re-opening of prior mastectomy incision with extensive irrigation and drainage of mastectomy abscess, re-excision of anterior margin of prior mastectomy. *PN 04/09 ([facility]): Continue antibiotics. Await culture results to target therapy. Thank you, Tasha CDS/Dent Remover Signature: Tasha Amaya RN, CDS Phone #: [phone] [email or web address] This is a permanent part of the Medical Record MTDD
== END 2020-04-10 15:10 | disposition home or self-care (01) | DRG 856 ==
LOC: ERS 21:04 → SURG B 04-08 00:46
PROVIDERS: ADMIT Surgery; ATTEND Surgery
PROC: 0H9U0ZZ Drainage of Left Breast, Open Approach (ICD-10-PCS; principal; 2020-04-08)
DX: T81.49XA Infection following a procedure, other surgical site, initial encounter (principal); A41.9 Sepsis, unspecified organism; M96.843 Postprocedural seroma of a musculoskeletal structure following other procedure; Z20.828 Contact with and (suspected) exposure to other viral communicable diseases; Y83.8 Other surgical procedures as the cause of abnormal reaction of the patient, or of later complication, without mention of misadventure at the time of the procedure; N61.0 Mastitis without abscess; E03.9 Hypothyroidism, unspecified; J30.2 Other seasonal allergic rhinitis; Z79.890 Hormone replacement therapy; Z79.899 Other long term (current) drug therapy
CPT/HCPCS: 36415; 80048; 80053; 81003; 81015; 83605; 85025; 87040; 87070; 87077; 87086; 87186; 87205; 87635; 88307; 88342; 96365; 96367; J0692; J1170; J1885; J2405; J2704; J3010; J3370; J3480; J3490; J7050; U0003

== ENCOUNTER 2021-04-20 14:51 | Outpatient (CLI) | payer BC | END 2021-04-20 14:52 | disposition home or self-care (01) | LOC: BICMAMMO 14:51 | PROVIDERS: ATTEND Specialist | DX: D05.11 Intraductal carcinoma in situ of right breast (principal); D05.12 Intraductal carcinoma in situ of left breast | CPT/HCPCS: 77066; G0279 ==

== ENCOUNTER 2021-05-22 11:08 | Outpatient (CLI) | payer BC ==
[2021-05-22 20:38] LABS: SARS-CoV-2 PCR by NAA Not Detected (NotDetected)
== END 2021-05-22 11:09 | disposition home or self-care (01) ==
LOC: LABBT 11:08
PROVIDERS: ATTEND Plastic Surgery
DX: Z01.812 Encounter for preprocedural laboratory examination (principal); D25.9 Leiomyoma of uterus, unspecified; N95.0 Postmenopausal bleeding; Z20.822 Contact with and (suspected) exposure to COVID-19
CPT/HCPCS: U0003; U0005

== ENCOUNTER 2021-05-25 08:58 | Day surgery (SDC) | payer BC ==
[2021-05-24 12:36] VITALS: BMI 32.3
[2021-05-25] MEDS ORDERED: Bupivacaine 0.25% HCL 30 ML VIAL ONE (09:46)
[2021-05-25] MEDS ORDERED: Gentamicin 80 MG/2 ML VIAL ONE ×2 (09:46→13:29)
[2021-05-25] MEDS ORDERED: Neomycin-Polymyxin 1 ML AMP ONE (09:46)
[2021-05-25] MEDS ORDERED: Sodium Chloride 0.9% 10 ML ONE (09:46)
[2021-05-25] MEDS ORDERED: EPINEPHrine 1 MG/ML AMP ONE (09:46)
[2021-05-25] MEDS ORDERED: Heparin 5,000 UNITS/ML VIAL ONE (10:00)
[2021-05-25] MEDS ORDERED: ceFAZolin 2 GM/DEX 5% 100 ML BAG ONE (10:00)
[2021-05-25] MEDS ORDERED: Fentanyl 100 MCG/2 ML VIAL ONE ×2 (10:40)
[2021-05-25] MEDS ORDERED: Propofol 1,000 MG/100 ML VIAL IV ONE ×2 (10:40→10:50)
[2021-05-25] MEDS ORDERED: Ketamine 50 MG/ML (10ML VIAL) ONE (10:40)
[2021-05-25] MEDS ORDERED: Midazolam HCl 2 mg/2 ml Vial ONE (10:54)
[2021-05-25] MEDS ORDERED: Dexamethasone 20 MG/5 ML VIAL ONE (12:32)
[2021-05-25] MEDS ORDERED: Glycopyrrolate 0.2 MG/ML 5 ML SYRINGE ONE (12:32)
[2021-05-25] MEDS ORDERED: Lidocaine 1% PF 5 ML VIAL ONE (12:32)
[2021-05-25] MEDS ORDERED: Ondansetron PF 4 MG/2 ML Vial ONE (12:32)
[2021-05-25] MEDS ORDERED: PROPOFOL 200 MG/20 ML VIAL ONE (12:32)
[2021-05-25] MEDS ORDERED: PHENYLEPHRINE-NS 100 MCG/ML 10 ML SYRINGE ONE (12:32)
[2021-05-25] MEDS ORDERED: HYDROcodone/Acetaminophen 5/325 mg Tablet ONE (16:07)
== END 2021-05-25 16:36 | disposition home or self-care (01) ==
LOC: SDC 08:58
PROVIDERS: ATTEND Plastic Surgery
PROC: 0H0V0JZ Alteration of Bilateral Breast with Synthetic Substitute, Open Approach (ICD-10-PCS; principal; 2021-05-25)
PROC: 0HB5XZZ Excision of Chest Skin, External Approach (ICD-10-PCS; principal; 2021-05-25)
PROC: 0H0V07Z Alteration of Bilateral Breast with Autologous Tissue Substitute, Open Approach (ICD-10-PCS; principal; 2021-05-25)
DX: Z42.1 Encounter for breast reconstruction following mastectomy (principal); E89.0 Postprocedural hypothyroidism; M19.90 Unspecified osteoarthritis, unspecified site; Z85.3 Personal history of malignant neoplasm of breast; Z87.891 Personal history of nicotine dependence; Z79.899 Other long term (current) drug therapy; Z88.2 Allergy status to sulfonamides
CPT/HCPCS: 88305; 93005; 93010; C1713; J0171; J1100; J1580; J1644; J2250; J2405; J2704; J3010; J3370; S0020

== ENCOUNTER 2022-02-22 08:09 | Outpatient (CLI) | payer BC ==
[2022-02-22] MEDS ORDERED: Iopamidol-370 76% 500 ML 1 ML ONE (13:47)
== END 2022-02-22 08:10 | disposition home or self-care (01) ==
LOC: BICCT 08:09
PROVIDERS: ATTEND Obstetrics & Gynecology Gynecologic Oncology
DX: C54.2 Malignant neoplasm of myometrium (principal); K80.20 Calculus of gallbladder without cholecystitis without obstruction; R59.1 Generalized enlarged lymph nodes; N28.9 Disorder of kidney and ureter, unspecified
CPT/HCPCS: 71260; 74177; 82565; Q9967

== ENCOUNTER 2022-03-26 08:45 | Outpatient (CLI) | payer BC | END 2022-03-26 08:46 | disposition home or self-care (01) | LOC: PET 08:45 | PROVIDERS: ATTEND Nurse Practitioner Family | DX: C54.2 Malignant neoplasm of myometrium (principal); N28.89 Other specified disorders of kidney and ureter | CPT/HCPCS: 78815; A9552 ==

== ENCOUNTER 2022-03-27 08:31 | Outpatient (CLI) | payer BC | END 2022-03-27 08:32 | disposition home or self-care (01) | LOC: SCSMRI 08:31 | PROVIDERS: ATTEND Nurse Practitioner Family | DX: C55 Malignant neoplasm of uterus, part unspecified (principal); Z90.710 Acquired absence of both cervix and uterus | CPT/HCPCS: 72197; 74183; 82565 ==

== ENCOUNTER 2022-08-01 12:01 | Outpatient (CLI) | payer BC | END 2022-08-01 12:02 | disposition home or self-care (01) | LOC: SJX 12:01 | PROVIDERS: ATTEND Urology | DX: N28.89 Other specified disorders of kidney and ureter (principal); K80.20 Calculus of gallbladder without cholecystitis without obstruction | CPT/HCPCS: 74170 ==

== ENCOUNTER 2022-11-21 08:33 | Day surgery (SDC) | payer BC ==
[2022-11-20 13:02] VITALS: BMI 34.1
[2022-11-21 08:52] LABS: #Eosinphils 0.1 thou/uL (0.0-0.7); #Monocytes 0.6 thou/uL (0.11-0.59); #Neutrophils 5.3 thou/uL (1.40-6.50); %Basophils 0.4 % (0.0-1.0); %Eosinophils 0.8 % (0.0-10.0); %Lymphocytes 45.2 % (21.0-51.0); %Neutrophils 48.5 % (42.0-75.0); Mean Corpuscular HGB CONC 32.8 g/dL (32.0-36.0); Mean Corpuscular Hemoglobin 28.1 pg (27.0-31.0); Mean Corpuscular Volume 85.7 fl (78.0-98.0); Mean Platelet Volume 7.9 fL (7.4-10.4); Platelet Count 246 10x3/uL (130-400); RBC Distribution Width 12.3 % (11.5-14.5); Red Blood Cell (RBC) Count 4.64 mill/uL (4.20-5.40); White Blood Cell (WBC) Count 10.9 10x3/uL (4.8-10.8)
[2022-11-21 08:55] LABS: INR-International Normal Ratio 0.9; PTT 28.2 sec (22.9-36.1); Prothrombin Time 12.6 sec (12.0-14.7)
[2022-11-21 14:29] VITALS: BP 130/74; TEMP 97.6
== END 2022-11-21 14:00 | disposition home or self-care (01) ==
LOC: CT 08:33
PROVIDERS: ATTEND Urology
PROC: 0TB13ZX Excision of Left Kidney, Percutaneous Approach, Diagnostic (ICD-10-PCS; principal; 2022-11-21)
DX: D17.71 Benign lipomatous neoplasm of kidney (principal); E89.0 Postprocedural hypothyroidism; Z85.3 Personal history of malignant neoplasm of breast; Z88.2 Allergy status to sulfonamides
CPT/HCPCS: 50200; 77012; 85025; 85610; 85730; 88305; 88333; 88334; 88341; 88342

== ENCOUNTER 2022-12-02 13:39 | Outpatient (CLI) | payer BC | END 2022-12-02 13:40 | disposition home or self-care (01) | LOC: ULT 13:39 | PROVIDERS: ATTEND Urology | DX: D17.71 Benign lipomatous neoplasm of kidney (principal); R60.0 Localized edema | CPT/HCPCS: 93970 ==

== ENCOUNTER 2022-12-09 08:52 | Outpatient (CLI) | payer BC ==
[2022-12-09] MEDS ORDERED: Iopamidol 370 76% 100 ML VIAL ONE (09:08)
== END 2022-12-09 08:53 | disposition home or self-care (01) ==
LOC: CT 08:52
PROVIDERS: ATTEND Obstetrics & Gynecology Gynecologic Oncology
DX: C54.2 Malignant neoplasm of myometrium (principal); R59.0 Localized enlarged lymph nodes; R18.8 Other ascites; N28.9 Disorder of kidney and ureter, unspecified
CPT/HCPCS: 71260; 74177; Q9967

== ENCOUNTER 2023-01-24 15:01 | Outpatient (CLI) | payer BC ==
[2023-01-24 17:24] LABS: #Eosinphils 0.1 10x3/uL (0.0-0.5); #Monocytes 0.1 10x3/uL (0.0-1.1); #Neutrophils 7.7 10x3/uL (1.5-8.4); %Basophils 0.2 % (0.0-2.0); %Eosinophils 0.5 % (0.0-6.0); %Lymphocytes 21.3 % (18.0-47.0); %Monocytes 0.8 % (0.0-10.0); %Neutrophils 76.9 % (40.0-75.0); Hemoglobin 9.4 g/dL (12.0-15.5); Mean Corpuscular HGB CONC 31.2 g/dL (32.0-36.0); Mean Corpuscular Hemoglobin 26.6 pg (27.0-33.0); Mean Corpuscular Volume 85.3 fl (81.6-98.3); Mean Platelet Volume 10.4 fl (7.4-10.4); Platelet Count 389 10x3/uL (150-450); RBC Distribution Width 15.3 % (11.5-14.5); Red Blood Cell (RBC) Count 3.53 10x6/uL (3.90-5.03)
[2023-01-24 17:31] LABS: Anion Gap 17 mmol/L (10-20); BUN (Urea Nitrogen) 13 mg/dL (9.8-20.1); Calc. Creatinine Clearance 0 mL/min (70-130); Calcium 8.5 mg/dL (7.8-10.44); Carbon Dioxide 22 mmol/L (22-29); Chloride 104 mmol/L (98-107); Estimated GFR 104; Glucose 79 mg/dL (70-105); Potassium 3.9 mmol/L (3.5-5.1); Sodium 139 mmol/L (136-145)
== END 2023-01-24 15:02 | disposition home or self-care (01) ==
LOC: LABBT 15:01
PROVIDERS: ATTEND Specialist
DX: Z01.812 Encounter for preprocedural laboratory examination (principal); Z86.000 Personal history of in-situ neoplasm of breast
CPT/HCPCS: 71046; 80048; 85025; 93005; 93010

== ENCOUNTER 2023-01-27 10:26 | Day surgery (SDC) | payer BC ==
[2023-01-21 12:20] VITALS: BMI 34.8
[2023-01-27] MEDS ORDERED: Acetaminophen 500 MG TAB ONE (11:45)
[2023-01-27] MEDS ORDERED: Ketorolac Tromethamine 30 MG/ML VIAL ONE (11:45)
[2023-01-27] MEDS ORDERED: Bupivacaine/Epinephrine 0.25% 30 ML VIAL ONE (12:45)
[2023-01-27] MEDS ORDERED: Lidocaine 1% (PF) 30 ML VIAL ONE (12:45)
[2023-01-27] MEDS ORDERED: Sodium Chloride 0.9% 100 ML ONE (14:08)
[2023-01-27] MEDS ORDERED: Dexmedetomidine 200 MCG/2 ML VIAL ONE (14:08)
[2023-01-27] MEDS ORDERED: Midazolam HCl 2 mg/2 ml Vial ONE (14:08)
[2023-01-27] MEDS ORDERED: fentaNYL PF 100 MCG/2 ML SYRINGE ONE (14:08)
[2023-01-27] MEDS ORDERED: CEFAZOLIN 2 GM VIAL ONE (14:08)
[2023-01-27] MEDS ORDERED: Propofol 500 MG/50 ML VIAL ONE (14:09)
[2023-01-27] MEDS ORDERED: Lidocaine 1% PF 5 ML VIAL ONE (14:20)
== END 2023-01-27 15:48 | disposition home or self-care (01) ==
LOC: SDC 10:26
PROVIDERS: ATTEND Specialist
PROC: 3E04005 Introduction of Other Antineoplastic into Central Vein, Open Approach (ICD-10-PCS; principal; 2023-01-27)
PROC: 0JH60WZ Insertion of Totally Implantable Vascular Access Device into Chest Subcutaneous Tissue and Fascia, Open Approach (ICD-10-PCS; principal; 2023-01-27)
DX: C55 Malignant neoplasm of uterus, part unspecified (principal); C79.9 Secondary malignant neoplasm of unspecified site; E66.01 Morbid (severe) obesity due to excess calories; Z68.34 Body mass index [BMI] 34.0-34.9, adult; Z90.89 Acquired absence of other organs; Z87.891 Personal history of nicotine dependence; Z88.2 Allergy status to sulfonamides; Z86.000 Personal history of in-situ neoplasm of breast
CPT/HCPCS: 71045; C1788; J1642; J1885; J2001; J2250; J2704; J3490